=== PATIENT | female | born 1960 | race African-American/Black ===

== ENCOUNTER 2020-07-25 07:47 | Day surgery (SDC) | payer BC ==
--- NOTE | 2020-07-20 11:18 | EKG REPORT ---
SEVERITY:- NORMAL ECG - SINUS RHYTHM : Confirmed by: Vitaliy Maurice MD 20-Jul-2020 11:17:50
[2020-07-25] MEDS ORDERED: BUPIVACAINE HCL 0.5%/EPI 1:200000 INJ 1.8 ML CARTRIDGE ONE (08:49)
[2020-07-25] MEDS ORDERED: ONDANSETRON HCL INJ/PF 4 MG/2 ML SDV ONE (08:51)
[2020-07-25] MEDS ORDERED: DEXAMETHASONE SOD PHOS INJ 10 MG/1 ML VIAL ONE (08:52)
[2020-07-25] MEDS ORDERED: MIDAZOLAM 2 MG/2 ML INJ ONE (08:52)
[2020-07-25] MEDS ORDERED: HYDROMORPHONE HCL INJ/PF 2 MG/ML AMPULE ONE (08:52)
[2020-07-25] MEDS ORDERED: FENTANYL CITRATE INJ/PF 100 MCG/2 ML AMPUL ONE ×2 (08:52→10:58)
[2020-07-25] MEDS ORDERED: SUCCINYLCHOLINE CHLORIDE INJ 200 MG/10 ML VIAL ONE (08:53)
[2020-07-25] MEDS ORDERED: PROPOFOL INJ 200 MG/20 ML VIAL IV ONE (08:53)
[2020-07-25] MEDS ORDERED: METOPROLOL TARTRATE PF/INJ 5 MG/5 ML SDV IV ONE (09:31)
[2020-07-25] MEDS ORDERED: HYDROCOD/ACETAMIN 7.5-325 MG/15 ML ORAL SOLN UDCUP ONE (11:08)
--- NOTE | 2020-08-01 14:40 | Operative Report ---
Operative Report-[facility] Operative Report: DATE OF OPERATION: July 25, 2020 PREOPERATIVE DIAGNOSIS: 1. Chronic tonsillitis 2. Chronic recurrent tonsil stones 3. Chronic halitosis POSTOPERATIVE DIAGNOSIS: 1. Chronic tonsillitis 2. Chronic recurrent tonsil stones 3. Chronic halitosis 4. Intraoperatively identified left tonsil microabscess PROCEDURE: 1. Bilateral tonsillectomy patient age greater than 12 years of age Primary Surgeon of Record: Dr. Moshe Pina COMPANY DRIVER: None Anesthesia Staff: UMESH Dunham ANESTHESIA: General Endotracheal Tube Anesthesia DRAINS: None SPONGE COUNT: Verified Needle Count: N/A SPECIMEN/MATERIALS FORWARD TO THE LAB: 1. Left and Right Tonsillar Tissue ESTIMATED BLOOD LOSS: 10 mL IV FLUIDS: 750 mL COMPLICATIONS: None Findings: 1. Tonsils were 2+ in size, were cryptic in nature, and were with tonsillar debris present bilateral. There was also a left tonsillar microabscess present. 2. The soft palatal tissues were redundant in nature and the uvula was elongated and thickened in appearance. 3. Increased tongue fullness/macroglossia. INDICATIONS: This is a 60-year-old female patient who was seen and evaluated in the [facility]. The patient had been referred for and she complained of a longstanding history over many years of chronic tonsillitis symptoms, chronic recurrent tonsil stones, and chronic halitosis. The patient has been interested in undergoing a tonsillectomy over the years, but has not yet been able to. After extensive discussion with the patient the recommendation and plan was to proceed with a bilateral tonsillectomy. The procedures and all of the risks and complications were all discussed in detail with the patient. She voiced an understanding of the described surgical plan, were in agreement, and consent was obtained. DESCRIPTION OF OPERATIVE PROCEDURE: The patient was taken to the main operating room and was placed on the operating room table in the supine position. Appropriate monitors were placed. Using mask and IV access general anesthesia was induced. The patient was next transorally intubated without difficulty. The table was then rotated 90 and the patient was positioned and prepped for tonsil surgery. The lips, teeth, tongue, and gums were inspected and noted to be without defect. The patient had a mouth gag inserted. It was opened and the patient was placed into suspension. There was a soft catheter passed through the nose that was used to suspend the soft palate. Findings are as noted above. At this point Marcaine with epinephrine was administered into the peritonsillar tissues and soft palate region. The plasma J-hook device was used to dissect and remove the tonsils from the tonsillar fossae without difficulty. This was also used to provide adequate hemostasis. The left tonsil microabscess was addressed during removal of the left tonsillar tissue. Normal saline irrigation was performed and was suctioned. Adequate hemostasis was noted. There were no additional findings concerning for an abscess process. The soft catheter was released and removed from the patients nose. The patient was next released from suspension and the mouth gag was closed. It was opened again and there was again no bleeding noted. It was then removed from the patient's mouth without difficulty. There was no damage to the lips, teeth, tongue, or gums noted. The patient was then returned to the anesthesia staff and was allowed to emerge from general anesthesia. The patient was extubated in the operating room and was transported to the post anesthesia recovery unit in stable condition. There were no complications.
== END 2020-07-25 11:46 | disposition home or self-care (01) ==
LOC: SC 07:47
PROVIDERS: ATTEND Otolaryngology
DX: J35.1 Hypertrophy of tonsils (principal); Q38.2 Macroglossia; R19.6 Halitosis; J35.8 Other chronic diseases of tonsils and adenoids; K21.9 Gastro-esophageal reflux disease without esophagitis; G43.009 Migraine without aura, not intractable, without status migrainosus; J34.2 Deviated nasal septum; J34.3 Hypertrophy of nasal turbinates; I10 Essential (primary) hypertension; D64.9 Anemia, unspecified; F32.9 Major depressive disorder, single episode, unspecified; Z03.818 Encounter for observation for suspected exposure to other biological agents ruled out; Z80.3 Family history of malignant neoplasm of breast; E66.9 Obesity, unspecified
CPT/HCPCS: 93005; 88304 ×2; 93010; 00170; 42826; U0003; J2250; J3490 ×2; J3010; J1170; J0330; J2405; J2704; J1100; C9803; 170; 87635